=== PATIENT | female | born 1975 | race Caucasian/White ===

== ENCOUNTER 2019-02-13 09:28 | Emergency (ER) | payer SELFPAY ==
[~2019-02-13] VITALS: Ht 175.3 cm; Wt 79.4 kg
[2019-02-13] MEDS ORDERED: LIDO:MAALOX 1:1 20 ML SINGLE DOSE. SWSW ONE (10:15)
[2019-02-13 10:30] VITALS: BP 152/72
--- NOTE | 2019-02-13 10:41 | EKG ---
[facility] [address] [place] [address] Test Date: 2019-02-13 Test Time: 09:57:19 Pat Name: NATALI HUDSON Department: Room: Gender: F Aircraft [employer]er: : 1975 Requested By: MARITTA GUZMÁN Order Number: [id number] Reading MD: Measurements Intervals [place] Rate: 83 P: 51 DC: 138 QRS: 102 QRSD: 86 T: 28 QT: 370 QTc: 440 Interpretive Statements SINUS RHYTHM RIGHTWARD AXIS OTHERWISE NORMAL ECG No previous ECG available for comparison
--- NOTE | 2019-02-13 10:41 | PHYS DOC ---
Past Medical History Past Medical History: No Pertinent History Past Surgical History: No Surgical History Alcohol Use: Occasionally Drug Use: None Adult General Chief Complaint Chief Complaint: CHEST WALL PAIN HPI HPI Patient is a 43 year old female presents with back and chest heaviness. Back pain started 2 days ago. Patient denies trauma. Back pain is mid thoracic location and does not reproduce with position change and movement. Patient also reports mild dysphagia and belching. Denies nausea or vomiting. The patient also reports anxiety and chest heaviness starting last evening. Patient taking anxiety medications yesterday which did not help chest heaviness. Chest heaviness continued upon waking this morning prompting the patient come to the emergency department. No abdominal pain. No fever chills, sweats. No urinary frequency urgency. No leg pain or swelling. No other acute symptoms or complaints. Patient is a current smoker. Denies history of diabetes dyslipidemia CAD hypertension or family history of coronary disease at age of 50. [] Review of Systems Review of Systems Review of symptoms as per history of present illness. All other review symptoms are negative. All other systems were reviewed and found to be within normal limits, except as documented in this note. Current Medications Current Medications Current Medications Medications (Trade) Dose Ordered Sig/Justin Start Time Stop Time Status Last Admin Dose Admin Multi-Ingredient Mouthwash/Gargle (Gi Cocktail) 20 ml 1X ONCE 02/13/19 10:15 02/13/19 10:16 DC 02/13/19 10:30 20 ML Allergies Allergies Allergies Coded Allergies Type Severity Reaction Last Updated Verified doxycycline Allergy Intermediate 11/13/14 Yes Physical Exam Physical Exam Constitutional: Well developed, well nourished, no acute distress, non-toxic appearance. [] HENT: Normocephalic, atraumatic, bilateral external ears normal, oropharynx moist, no oral exudates, nose normal. [] Eyes: PERRLA, EOMI, conjunctiva normal, no discharge. [] Neck: Normal range of motion, no tenderness, supple, no stridor. [] Cardiovascular:Heart rate regular rhythm, no murmur [] Lungs & Thorax: Bilateral breath sounds clear to auscultation [] Abdomen: Bowel sounds normal, soft, no tenderness, no masses, no pulsatile masses. [] Skin: Warm, dry, no erythema, no rash. [] Back: No tenderness, no CVA tenderness. [] Extremities: No tenderness, no cyanosis, no clubbing, ROM intact, no edema. [] Neurologic: Alert and oriented X 3, normal motor function, normal sensory function, no focal deficits noted. [] Psychologic: Affect normal, judgement normal, mood normal. [] Current Patient Data Vital Signs Vital Signs Date Time Temp Pulse Resp B/P (MAP) Pulse Ox O2 Delivery O2 Flow Rate FiO2 02/13/19 10:30 98.8 90 16 152/72 (98) 90 Room Air 98.8 EKG EKG [EKG: Sinus rhythm, rate 83, no acute ST-T wave changes, QTC 440.] Radiology/Procedures Radiology/Procedures [] Course & Med Decision Making Course & Med Decision Making Pertinent Labs and Imaging studies reviewed. (See chart for details) [Significant improvement check cocktail. Suspect esophagitis versus peptic ulcer disease is likely cause of symptoms. Recommend supportive care with close PCP follow-up. Return precautions reviewed. Patient verbalizes understanding agreement discharge instructions prior to departure.] Dragon Disclaimer Dragon Disclaimer This electronic medical record was generated, in whole or in part, using a voice recognition dictation system. Departure Departure Impression: Primary Impression: Dysphagia Additional Impression: Chest pain Disposition: HOME, SELF-CARE Condition: IMPROVED Referrals: NO PCP (PCP) Scripts Omeprazole Magnesium (PRILOSEC OTC) 20 Mg Tablet. 1 TAB PO DAILY, #30 TAB 0 Refills Prov: MARTITA GUZMÁN DO 02/13/19 Ranitidine Hcl (ZANTAC) 150 Mg Tablet 150 MG PO BID, #14 TAB Prov: MARTITA GUZMÁN DO 02/13/19 Problem Qualifiers MARTITA GUZMÁN DO Feb 13, 2019 10:41
[2019-02-13] MEDS ORDERED: RANI-376 PO (11:08)
[2019-02-13] MEDS ORDERED: OMEP20TA63 PO (11:08)
== END 2019-02-13 11:18 | disposition home or self-care (01) ==
LOC: ER 09:28
DX: R13.10 Dysphagia, unspecified (principal); R07.89 Other chest pain; M54.9 Dorsalgia, unspecified; F41.9 Anxiety disorder, unspecified; R14.2 Eructation; F17.200 Nicotine dependence, unspecified, uncomplicated; Z88.1 Allergy status to other antibiotic agents
CPT/HCPCS: 93005; 99283